=== PATIENT | female | born 1945 | race Caucasian/White ===

== ENCOUNTER 2018-12-25 10:29 | Inpatient (IN) ==
[2018-12-25 11:36] LABS: ABG HCO3 22.8 MMOL/L (20-26); ABG Oxygen Saturation 98.2 % (95-100); ABG TCO2 17.8 MMOL/L (23-27)
[2018-12-25 12:13] LABS: Basophils % 0.7 % (0.0-0.8); Eosinophils # 0.1 10*3/uL (0.0-0.87); Eosinophils % 1.6 % (0.00-10.9); Hematocrit 39.1 VOL% (35.7-47.0); Hemoglobin 12.9 GM/DL (12.0-16.0); Immature Granulocytes % 0.3 %; Immature Granulocytes Absolute 0.02 #; Lymphocytes % 16.6 % (21.3-54.2); Mean Corpuscular Volume 85.4 FL (87-102); Mean Platelet Volume 9.5 FL (9.6-12.0); Monocytes % 9.2 % (1.7-12.7); Neutrophils % 71.6 % (38.7-73.9); Platelet Count 354 T/CUMM (130-400); Red Blood Count 4.58 MC/CUMM (3.8-5.5); White Blood Count 6.1 T/CUMM (4-12)
[2018-12-25 12:39] LABS: Albumin 3.9 G/DL (3.4-5.0); Bilirubin,Total 0.4 MG/DL (0.2-1.0); Calcium 9.1 MG/DL (8.5-10.1); Osmolality,Calculated 280.3 MOS/KG (273-304)
[2018-12-25] MEDS ORDERED: ACETAMINOPHEN 325 MG TABLET PO PRN (15:17)
[2018-12-25] MEDS ORDERED: ONDANSETRON 4 MG/2 ML VIAL IV PRN (15:17)
[2018-12-25] MEDS ORDERED: ALBUTEROL 2.5 MG/3 ML NEB RESP TX PRN (15:23)
[2018-12-25] MEDS ORDERED: ALBUTEROL/IPRATROPIUM 3 ML NEB RESP TX PRN (16:17)
[2018-12-25 16:39] LABS: Troponin I 0.049 NG/ML (0.00-0.045)
[2018-12-25 20:10] LABS: Troponin I 0.054 NG/ML (0.00-0.045)
[2018-12-25] MEDS ORDERED: ZALEPLON 5 MG CAPSULE PO PRN (20:32)
[2018-12-26 06:10] LABS: Basophils # 0.1 10*3/uL (0.0-0.2); Eosinophils # 0.2 10*3/uL (0.0-0.87); Eosinophils % 3.3 % (0.00-10.9); Hematocrit 39.2 VOL% (35.7-47.0); Hemoglobin 12.5 GM/DL (12.0-16.0); Immature Granulocytes % 0.4 %; Immature Granulocytes Absolute 0.02 #; Lymphocytes # 1.1 10*3/uL (1.4-4.0); Lymphocytes % 22.8 % (21.3-54.2); Mean Corpuscular HGB Conc 31.9 GM/DL (32-36); Mean Corpuscular Volume 87.1 FL (87-102); Mean Platelet Volume 9.4 FL (9.6-12.0); Neutrophils % 57.5 % (38.7-73.9); Platelet Count 345 T/CUMM (130-400); Red Cell Distribution Width 14.3 % (9.3-17.3); White Blood Count 4.9 T/CUMM (4-12)
[2018-12-26 06:20] LABS: Calcium 8.9 MG/DL (8.5-10.1); Osmolality,Calculated 278.4 MOS/KG (273-304); Risk Ratio 2.35; VLDL CHOLESTEROL 26.2 MG/DL
[2018-12-26] MEDS: PANTOPRAZOLE 40 MG TABLET PO SCH (09:15)
[2018-12-26] MEDS: ASPIRIN EC 81 MG TABLET PO SCH (09:15)
[2018-12-26] MEDS: ROSUVASTATIN 10 MG TABLET PO SCH (09:15)
[2018-12-26] MEDS: FERROUS SULFATE 325 MG TABLET PO SCH (09:15)
[2018-12-26] MEDS: FUROSEMIDE 20 MG TABLET PO SCH (09:15)
[2018-12-26] MEDS ORDERED: MAGNESIUM SULF RIDER 2 GM in PREMIX 1 EACH IV PRN (15:36)
[2018-12-26] MEDS ORDERED: POTASSIUM CHLORIDE RIDER 10 MEQ in PREMIX 1 EACH IV PRN (15:36)
[2018-12-26] MEDS: SODIUM CHLORIDE 0.9% 1,000 ML IV SCH (23:12)
[2018-12-27] MEDS ORDERED: DIAZEPAM 5 MG TABLET PO ONE ×2 (00:01→07:00)
[2018-12-27] MEDS ORDERED: diphenhydrAMINE CAP 25 MG CAPSULE PO ONE ×2 (00:01→07:00)
[2018-12-27 06:04] LABS: Basophils % 0.6 % (0.0-0.8); Eosinophils # 0.1 10*3/uL (0.0-0.87); Hemoglobin 12.7 GM/DL (12.0-16.0); Immature Granulocytes % 0.5 %; Immature Granulocytes Absolute 0.03 #; Lymphocytes # 1.6 10*3/uL (1.4-4.0); Lymphocytes % 24.1 % (21.3-54.2); Mean Corpuscular HGB Conc 32.6 GM/DL (32-36); Mean Corpuscular Volume 86.9 FL (87-102); Mean Platelet Volume 9.6 FL (9.6-12.0); Monocytes % 11.9 % (1.7-12.7); Neutrophils % 60.9 % (38.7-73.9); Platelet Count 356 T/CUMM (130-400); Red Blood Count 4.49 MC/CUMM (3.8-5.5); Red Cell Distribution Width 14.6 % (9.3-17.3); White Blood Count 6.7 T/CUMM (4-12)
[2018-12-27 06:19] LABS: Calcium 8.7 MG/DL (8.5-10.1); Osmolality,Calculated 281.3 MOS/KG (273-304)
[2018-12-27] MEDS ORDERED: LIDOCAINE 1% 20 ML VIAL ONE (06:56)
[2018-12-27] MEDS ORDERED: HEPARIN/NACL 0.9% 2 UNITS/ML 1,000 ML IV ONE (06:56)
[2018-12-27] MEDS: SODIUM CHLORIDE 0.9% 1,000 ML IV SCH (07:02)
[2018-12-27] MEDS ORDERED: MIDAZOLAM 2 MG/2 ML VIAL ONE (07:34)
[2018-12-27] MEDS ORDERED: HYDROmorphone 2 MG/1 ML VIAL ONE (07:34)
[2018-12-27] MEDS: PANTOPRAZOLE 40 MG TABLET PO SCH (15:56)
[2018-12-27] MEDS: FUROSEMIDE 20 MG TABLET PO SCH (15:56)
[2018-12-27] MEDS: FERROUS SULFATE 325 MG TABLET PO SCH (15:56)
[2018-12-27] MEDS: ROSUVASTATIN 10 MG TABLET PO SCH (15:56)
[2018-12-27] MEDS: ASPIRIN EC 81 MG TABLET PO SCH (15:56)
[2018-12-27] MEDS ORDERED: ALPRAZolam 0.25 MG TABLET PO ONE (21:55)
[2018-12-28] MEDS: SODIUM CHLORIDE 0.9% 1,000 ML IV SCH ×4 (00:54→10:13)
[2018-12-28] MEDS ORDERED: SODIUM CHLORIDE 0.9% 1,000 ML IV SCH (04:30)
[2018-12-28] MEDS ORDERED: LABETALOL 20 MG/4 ML SYRINGE IV PRN (05:09)
[2018-12-28] MEDS ORDERED: ALTEPLASE IV ONE ×2 (05:09)
[2018-12-28] MEDS ORDERED: niCARdipine INJ 25 MG in SODIUM CHLORIDE 0.9% 240 ML IV PRN (05:09)
[2018-12-28 05:25] LABS: Basophils % 0.7 % (0.0-0.8); Eosinophils # 0.1 10*3/uL (0.0-0.87); Eosinophils % 1.9 % (0.00-10.9); Hematocrit 35.7 VOL% (35.7-47.0); Immature Granulocytes % 0.5 %; Immature Granulocytes Absolute 0.03 #; Lymphocytes # 1.5 10*3/uL (1.4-4.0); Lymphocytes % 26.5 % (21.3-54.2); Mean Corpuscular HGB Conc 30.8 GM/DL (32-36); Mean Corpuscular Volume 91.3 FL (87-102); Mean Platelet Volume 8.7 FL (9.6-12.0); Monocytes % 13.8 % (1.7-12.7); Neutrophils % 56.6 % (38.7-73.9); Platelet Count 250 T/CUMM (130-400); Red Blood Count 3.91 MC/CUMM (3.8-5.5); Red Cell Distribution Width 14.8 % (9.3-17.3); White Blood Count 5.7 T/CUMM (4-12)
[2018-12-28 05:33] LABS: PT Patient Result 10.7 SECS (9.6-12.2); Partial Thromboplastin Time 25.2 SECS (20.8-36.0)
[2018-12-28 05:48] LABS: Albumin 3.2 G/DL (3.4-5.0); Bilirubin,Total 0.5 MG/DL (0.2-1.0); Calcium 8.1 MG/DL (8.5-10.1); Osmolality,Calculated 282.1 MOS/KG (273-304); Total Protein 6.3 G/DL (6.4-8.3)
[2018-12-28 09:26] LABS: Amorphous Crystals,Urine Few /HPF (Few); Apearance,Urine CLEAR (Clear); Bacteria,Urine Occasional /HPF (Few); Bilirubin,Urine Negative (Negative); Blood, Urine Small mg/dL (Negative); Glucose,Urine (UA) Negative (Negative); Ketones,Urine 5 mg/dL (Negative); Mucus,Urine Occasional /LPF (Occasional); Nitrite,Urine Negative (Negative); Protein,Urine Negative; RBC,Urine 1 /HPF (0-4); Squamous Epithelial Cell,Urine Occasional /HPF (0-10); Urine Color Yellow (Yellow); Urine Specific Gravity 1.013 (1.001-1.035); Urine Urobilinogen < 2.0 EU/DL (0.2-1.0)
[2018-12-28] MEDS: ROSUVASTATIN 10 MG TABLET PO SCH (10:02)
[2018-12-28] MEDS: PANTOPRAZOLE 40 MG TABLET PO SCH (10:02)
[2018-12-28] MEDS: FUROSEMIDE 20 MG TABLET PO SCH (10:02)
[2018-12-28] MEDS: FERROUS SULFATE 325 MG TABLET PO SCH (10:02)
[2018-12-28] MEDS ORDERED: LORazepam 2 MG/1 ML VIAL IV ONE (14:18)
[2018-12-28] MEDS ORDERED: LORazepam 2 MG/1 ML VIAL ONE (14:59)
[2018-12-29 06:16] LABS: Basophils # 0.1 10*3/uL (0.0-0.2); Basophils % 0.8 % (0.0-0.8); Eosinophils # 0.2 10*3/uL (0.0-0.87); Eosinophils % 2.4 % (0.00-10.9); Hematocrit 33.3 VOL% (35.7-47.0); Hemoglobin 10.6 GM/DL (12.0-16.0); Immature Granulocytes % 0.4 %; Immature Granulocytes Absolute 0.03 #; Lymphocytes # 1.5 10*3/uL (1.4-4.0); Mean Corpuscular HGB Conc 31.8 GM/DL (32-36); Monocytes % 10.8 % (1.7-12.7); Neutrophils % 64.6 % (38.7-73.9); Platelet Count 266 T/CUMM (130-400); Red Blood Count 3.74 MC/CUMM (3.8-5.5); Red Cell Distribution Width 14.7 % (9.3-17.3); White Blood Count 7.2 T/CUMM (4-12)
[2018-12-29 06:34] LABS: Calcium 8.4 MG/DL (8.5-10.1); Osmolality,Calculated 281.1 MOS/KG (273-304)
[2018-12-29 06:37] LABS: Risk Ratio 2.53; VLDL CHOLESTEROL 26.8 MG/DL
[2018-12-29] MEDS: FUROSEMIDE 20 MG TABLET PO SCH (08:36)
[2018-12-29] MEDS: ROSUVASTATIN 10 MG TABLET PO SCH (08:37)
[2018-12-29] MEDS: APIXABAN 5 MG TABLET PO SCH ×2 (08:37→20:50)
[2018-12-29] MEDS: FERROUS SULFATE 325 MG TABLET PO SCH (08:37)
[2018-12-29] MEDS: PANTOPRAZOLE 40 MG TABLET PO SCH (08:37)
[2018-12-29] MEDS ORDERED: DEXTROSE 10% 250 ML BAG IV PRN (10:11)
[2018-12-29] MEDS ORDERED: GLUCAGON 1 MG VIAL IM PRN (10:11)
[2018-12-29] MEDS: INSULIN REGULAR 100 UNIT/ML SUBCUT SCH ×2 (12:14→18:06)
[2018-12-30] MEDS: INSULIN REGULAR 100 UNIT/ML SUBCUT SCH ×5 (00:27→21:32)
[2018-12-30] MEDS: PANTOPRAZOLE 40 MG TABLET PO SCH (09:05)
[2018-12-30] MEDS: ROSUVASTATIN 10 MG TABLET PO SCH (09:05)
[2018-12-30] MEDS: FERROUS SULFATE 325 MG TABLET PO SCH (09:05)
[2018-12-30] MEDS: APIXABAN 5 MG TABLET PO SCH ×2 (09:05→21:25)
[2018-12-31 04:36] LABS: Basophils # 0.1 10*3/uL (0.0-0.2); Eosinophils # 0.2 10*3/uL (0.0-0.87); Eosinophils % 3.1 % (0.00-10.9); Hemoglobin 10.1 GM/DL (12.0-16.0); Immature Granulocytes % 0.6 %; Immature Granulocytes Absolute 0.03 #; Lymphocytes # 1.2 10*3/uL (1.4-4.0); Lymphocytes % 24.1 % (21.3-54.2); Mean Corpuscular HGB Conc 31.6 GM/DL (32-36); Mean Corpuscular Volume 88.2 FL (87-102); Mean Platelet Volume 9.4 FL (9.6-12.0); Monocytes % 12.2 % (1.7-12.7); Platelet Count 319 T/CUMM (130-400); Red Blood Count 3.63 MC/CUMM (3.8-5.5); Red Cell Distribution Width 14.5 % (9.3-17.3); White Blood Count 4.9 T/CUMM (4-12)
[2018-12-31 05:26] LABS: Calcium 8.6 MG/DL (8.5-10.1); Osmolality,Calculated 279.3 MOS/KG (273-304); Prealbumin 9.6 MG/DL (20-40)
[2018-12-31] MEDS: FERROUS SULFATE 325 MG TABLET PO SCH (09:14)
[2018-12-31] MEDS: ROSUVASTATIN 10 MG TABLET PO SCH (09:14)
[2018-12-31] MEDS: PANTOPRAZOLE 40 MG TABLET PO SCH (09:14)
[2018-12-31] MEDS: APIXABAN 5 MG TABLET PO SCH ×2 (09:14→21:17)
[2018-12-31] MEDS: INSULIN REGULAR 100 UNIT/ML SUBCUT SCH ×4 (09:18→21:17)
[2019-01-01 06:07] LABS: Basophils # 0.1 10*3/uL (0.0-0.2); Basophils % 1.1 % (0.0-0.8); Eosinophils # 0.1 10*3/uL (0.0-0.87); Eosinophils % 1.8 % (0.00-10.9); Hematocrit 33.4 VOL% (35.7-47.0); Hemoglobin 10.5 GM/DL (12.0-16.0); Immature Granulocytes % 0.2 %; Immature Granulocytes Absolute 0.01 #; Lymphocytes # 1.4 10*3/uL (1.4-4.0); Mean Corpuscular HGB Conc 31.4 GM/DL (32-36); Mean Corpuscular Volume 88.8 FL (87-102); Mean Platelet Volume 9.2 FL (9.6-12.0); Monocytes % 10.5 % (1.7-12.7); Neutrophils % 54.4 % (38.7-73.9); Platelet Count 374 T/CUMM (130-400); Red Blood Count 3.76 MC/CUMM (3.8-5.5); Red Cell Distribution Width 14.6 % (9.3-17.3); White Blood Count 4.5 T/CUMM (4-12)
[2019-01-01] MEDS: INSULIN REGULAR 100 UNIT/ML SUBCUT SCH ×2 (08:33→12:36)
[2019-01-01] MEDS: FERROUS SULFATE 325 MG TABLET PO SCH (09:08)
[2019-01-01] MEDS: APIXABAN 5 MG TABLET PO SCH (09:08)
[2019-01-01] MEDS: PANTOPRAZOLE 40 MG TABLET PO SCH (09:08)
[2019-01-01] MEDS: ROSUVASTATIN 10 MG TABLET PO SCH (09:08)
[2019-01-01 12:30] VITALS: BP 134/78
== END 2019-01-01 14:35 | DRG 205 ==
LOC: N.ED 10:29 → N.EDINP 15:15 → SUATTDRO 15:15 → N.2E 16:10 → N.CC 12-28 04:30 → N.4E 12-30 12:44
PROVIDERS: ADMIT Internal Medicine; ATTEND Hospitalist
PROC: CLCCHCL (ICD-10-PCS; 2018-12-27 08:15)